=== PATIENT | female | born 1970 | race Caucasian/White ===

== ENCOUNTER 2017-02-18 08:51 | Inpatient (IN) | payer BC ==
[~2017-02-18] VITALS: Ht 162.6 cm; Wt 79.1 kg
[2017-02-18] VITALS (34 sets, daily range): BP systolic 91–129; BP diastolic 52–80; PULSE 58–102; RESP 9–25; Ht 162.6 cm; Wt 79.1 kg
[~2017-02-18 08:51] MED LIST: ROCURONIUM 50 MG INJ ONE; SUCCINYLCHOLINE CHLORIDE 100 MG/5 ML SYG IV ONE
--- NOTE | 2017-02-18 11:53 | HPN ---
Date/Time of Note Date/Time of Note DATE: 02/18/17 TIME: 11:53 Interval H&P Admission Note Pt. seen H&P reviewed: No system changes MARINA FORRESTER PA-C Feb 18, 2017 11:53
[2017-02-18] MEDS ORDERED: BISACODYL 10 MG SUPP PR PRN (12:00)
[2017-02-18] MEDS ORDERED: HYDROmorphONE 1 MG/ML SYG IV PRN (12:00)
[2017-02-18] MEDS ORDERED: NALOXONE (0.4 MG/ML) INJ IV PRN (12:00)
[2017-02-18] MEDS ORDERED: CYCLOBENZAPRINE 10 MG TAB PO PRN (12:00)
[2017-02-18] MEDS ORDERED: CEFAZOLIN 2 GM/50 ML (PMX) 50 ML IVPB ONE (12:00)
[2017-02-18] MEDS ORDERED: HYDROCODONE/APAP (10/325) TAB PO PRN ×3 (12:00→13:00)
[2017-02-18] MEDS ORDERED: ACETAMINOPHEN 325 MG TAB PO PRN (12:00)
[2017-02-18] MEDS ORDERED: LACTATED RINGER'S 1,000 ML IV* ONE (12:00)
[2017-02-18] MEDS ORDERED: AL HYDROX/MG HYDROX/SIMETH 30 ML CUP PO PRN (12:00)
[2017-02-18] MEDS ORDERED: ZOLPIDEM 5 MG TAB PO PRN (12:00)
[2017-02-18] MEDS ORDERED: CEPASTAT LOZENGE MT PRN (12:00)
[2017-02-18] MEDS ORDERED: THROMBIN 5000 UNIT VIAL ONE (12:13)
[2017-02-18] MEDS ORDERED: SURGIFOAM POWDER 1 GM KIT ONE (12:13)
[2017-02-18] MEDS ORDERED: POLYMYXIN/BACITRACIN 1L IRRIG ONE (12:14)
[2017-02-18] MEDS ORDERED: BUPIVACAINE 0.25%/EPI (SDV) 30 ML INJ ONE (12:14)
[2017-02-18] MEDS ORDERED: PROPOFOL 20 ML ONE (12:33)
[2017-02-18] MEDS ORDERED: MIDAZOLAM 1 MG/ML 2 ML INJ ONE (12:33)
[2017-02-18] MEDS ORDERED: METOCLOPRAMIDE 10 MG INJ ONE (12:33)
[2017-02-18] MEDS ORDERED: HYDROmorphONE 2 MG/ML SYG ONE (12:44)
[2017-02-18] MEDS ORDERED: CEFAZOLIN 1 GM INJ ONE (12:58)
[2017-02-18] MEDS ORDERED: PROPOFOL 100 ML ONE (13:01)
[2017-02-18] MEDS ORDERED: HEPARIN 1000 UNITS/ML 10 ML INJ ONE (14:22)
[2017-02-18] MEDS ORDERED: DIPHENHYDRAMINE 50 MG INJ IV PRN (14:30)
[2017-02-18] MEDS ORDERED: ONDANSETRON 4 MG INJ IV PRN (14:30)
[2017-02-18] MEDS ORDERED: HYDROmorphONE (0.2 MG/ML) 10ML SYG IV PRN ×2 (14:30)
[2017-02-18] MEDS ORDERED: METOCLOPRAMIDE 10 MG INJ IV PRN (14:30)
[2017-02-18] MEDS ORDERED: MEPERIDINE 25 MG INJ IV PRN (14:30)
[2017-02-18] MEDS ORDERED: ONDANSETRON 4 MG INJ ONE (14:33)
[2017-02-18] MEDS ORDERED: GLYCOPYRROLATE 1 MG INJ ONE (14:33)
[2017-02-18] MEDS ORDERED: NEOSTIGMINE 3 MG/3 ML SYRINGE ONE (14:33)
[2017-02-18] MEDS ORDERED: EPHEDrine SULFATE 50 MG/5 ML SYG ONE (15:13)
--- NOTE | 2017-02-18 16:14 | RADRPT ---
PROCEDURE: Intraoperative imaging of the lumbar spine with fluoroscopy. CLINICAL INDICATION: Back pain. Intraoperative. TECHNIQUE: 13 images of the lumbar spine were obtained in the operating room with an image intensi fier. No radiologist was in attendance. 163.0 seconds of fluoroscopy time was used. COMPARISON: No prior study is available for comparison. FINDINGS: For the purposes of this report, the last apparent true disc level is considered to be L5-S1. Based on this, images demonstrate fusion at L4-5 with pedicle screws, connecting rods, and intervertebral cage. IMPRESSION: 1. Intraoperative imaging of the lumbar spine. RPTAT: QQ .Thuan Kirby MD, MD Date Time Electronically viewed and signed by .Thuan Kirby MD, on 02/18/2017 16:14 .R/
[2017-02-18] MEDS: ONDANSETRON 4 MG INJ IV PRN (16:51)
[2017-02-18] MEDS: HYDROmorphONE (0.2 MG/ML) 10ML SYG IV PRN ×2 (16:51→17:04)
[2017-02-18] MEDS: HYDROmorphONE 0.2 MG/ML PCA IV SCH (17:01)
--- NOTE | 2017-02-18 17:23 | OPR ---
DATE OF OPERATION: 02/18/2017 PREOPERATIVE DIAGNOSES: 1. L4-5 degenerative disk disease. 2. Stenosis with instability and radiculopathy. POSTOPERATIVE DIAGNOSES: 1. L4-5 degenerative disk disease. 2. Stenosis with instability and radiculopathy. IMPLANTS: 1. [place] 8 x 10 x 40 mm PEEK cage. 2. Fibergraft. 3. [place] 5.5 x 40 mm pedicle screws x4. PROCEDURES: 1. Anterior lumbar interbody fusion at L4-5. 2. Placement of intervertebral biomechanical device at L4-5. 3. Placement of pedicle screws at L4 and L5 bilaterally. 4. Posterolateral fusion at L4-5. 5. Bone marrow aspiration. 6. Use of allograft. 7. Use of C-arm fluoroscopy with interpretation without radiologist present. 8. Intraoperative neuromonitoring (2.5 hours). PRIMARY SURGEON: Victor M Early MD INSOLE REINFORCER: EB Arzola NEED FOR GARMENT LOOPER: During this spinal surgical procedure, my quality assistant was used to retract and protect the spinal nerves and dural sac. My quality assistant also employed the suction catheters to evacuate blood from the surgical field to improve visualization of the neural structures. The quality assistant was medically necessary to facilitate the completion of the surgery in a safe and expeditious manner. State of [place] regulations, as well as hospital bylaws, preclude the use of non-licensed health care personnel, such as operating room technicians, to perform these functions. FINDINGS: Neuromonitoring at the start of the case revealed bilateral L4 amplitude down 20%, left L5 amplitude down 30%, right L5 amplitude down 50%. At the end of the case, nerve signals returned to normal. The patient had disk disease with collapse at L4-5 with resultant stenosis. ESTIMATED BLOOD LOSS: 60 mL. DRAINS: None. SPECIMENS: Disk. COMPLICATIONS OF PROCEDURES: None. ANESTHESIOLOGIST: Dr. Gregg. TYPE OF ANESTHESIA: General. INDICATIONS FOR PROCEDURE: This is a 46-year-old female with lumbosacral radiculopathy in the setting of disk disease and stenosis at L4-5. She has failed nonoperative measures. Preoperatively, we discussed the risks, benefits and alternatives. She understood and wished to proceed. DESCRIPTION OF PROCEDURE IN DETAIL: The patient was identified in the preoperative holding area, given Ancef antibiotic, taken to the operating room, where she was successfully placed under general anesthesia. Neuromonitoring leads were placed, sequential compressive devices were applied. Tapia catheter was introduced. Neuromonitoring was utilized during the procedure for 2.5 hours to include SSEP, MEP, and EMG. This was performed by [employer]. Start time was 1:45 p.m.; closure time was 4:15 p.m. The patient was initially placed in a right lateral decubitus position. Axillary rolls were placed. The patient was secured to the table and the bed was flexed to allow access to the spine. The lateral flank was prepped, draped in usual sterile fashion. Incision was made over the L4-5 level. Incision was taken down. I then dissected with my fingers into the retroperitoneal space. I was able to palpate the psoas muscle. I then passed a dilator under C-arm guidance onto the L4-5 disk space using neuromonitoring along the way. Once this was in place, I passed a guidewire and took AP and lateral images and placed larger dilators followed by the retractor. I cleared the psoas off the annulus and made sure that there were no neural elements in the field. Once this was done, annulotomy was performed followed by radical diskectomy. Endplates were prepared. I placed various trials and chose the appropriate graft height. I impacted the intervertebral biomechanical device into the L4-5 disk space to complete the anterior lumbar interbody fusion at L4-5. I then irrigated the wound and injected Surgifoam for hemostatic purposes. I then removed the retractors and closed the fascia with #1 Vicryl stitch, subcutaneous tissue with 2-0 Vicryl stitch and a 4-0 Monocryl closure. Dermabond was then applied. Once stage I was completed, the patient was transferred to the operating table in prone position over a Glenn frame. All bony prominences were padded. The back was then reprepped and draped in usual sterile fashion. Under C-arm guidance, I identified the pedicles, then made incisions bilaterally over the L4 and L5 pedicles. On the left, there was a tattoo, and I strategically placed the incisions for later repair. I then passed Jamshidi needles into the L4 and L5 pedicles bilaterally. I performed a bone marrow aspiration from the right L4 pedicle and vertebral body. I then passed guidewires. I then placed the 5.5 x 40 mm screws bilaterally at L4 and L5. Once the screws were in place, I stimulated each of the screws and there was no evidence of cortical breach. I then passed a 55 mm rods with setscrews and tying these per manufacture's specifications and removed the extensor tabs. At this point, I took final AP and lateral images and I was happy with placement of the hardware and alignment of the spine. All nerve signals returned to normal. I irrigated the wound. I prepared the posterolateral gutters and placed allograft in the posterolateral gutter for posterolateral fusion at L4-5. Once this was done, I closed the deep fascia with #1 Vicryl stitch. I then closed subcutaneous tissue with 2-0 Vicryl stitch. Care was taken to reapproximate the wound edges on the left where the tattoo was. Then, Dermabond was placed. The patient was then awakened from anesthesia and taken to recovery room in stable condition. Lap, sponge counts were correct x2. There were no apparent complications during the procedure. The patient will be admitted to the [facility] for routine postoperative care to include pain control, neurovascular checks, antibiotics, and physical therapy. Dictated By: VICTOR M THAPA/JANEEN Conf#: [id number] DID#: [id number] MANDIE
--- NOTE | 2017-02-18 17:56 | RADRPT ---
PROCEDURE: Intraoperative imaging of the lumbar spine with fluoroscopy. CLINICAL INDICATION: Back pain. Intraoperative. TECHNIQUE: 2 images of the lumbar spine were obtained in the operating room with an image intensif ier. No radiologist was in attendance. 46 seconds of fluoroscopy time was used. COMPARISON: No prior study is available for comparison. FINDINGS: Images demonstrate surgical instruments overlying the lower lumbar spine. IMPRESSION: 1. Intraoperative imaging of the lumbar spine. RPTAT: QQ .Thuan Kirby MD, MD Date Time Electronically viewed and signed by .Thuan Kirby MD, MD on 02/18/2017 17:56 .R/
[2017-02-18] MEDS: DIPHENHYDRAMINE 50 MG INJ IV PRN (18:28)
[2017-02-18] MEDS: D5W-0.45 NACL + KCL 20 MEQ 1,000 ML IV SCH ×2 (20:24→20:53)
[2017-02-18] MEDS: CEFAZOLIN 1 GM/50 ML (PMX) 50 ML IVPB SCH (20:26)
[2017-02-19] VITALS: BP 96/55; RESP 18
[2017-02-19] MEDS: HYDROmorphONE 0.2 MG/ML PCA IV SCH ×4 (01:19→20:17)
[2017-02-19 04:22] VITALS: BP 97/54; RESP 16
[2017-02-19] MEDS: CEFAZOLIN 1 GM/50 ML (PMX) 50 ML IVPB SCH (04:32)
[2017-02-19 05:16] LABS: ADD SCAN DIFF NO
[2017-02-19 05:32] LABS: BASOPHILS % 0.1 % (0.0-2.0); EOSINOPHILS % 0.2 % (0.0-7.0); HEMATOCRIT 35.3 % (37.0-47.0); HEMOGLOBIN 11.3 g/dl (12.0-16.0); LYMPHOCYTES # 0.9 10^3/ul (0.8-2.9); LYMPHOCYTES % 8.5 % (15.0-51.0); MEAN CORPUSCULAR HEMOGLOBIN 29.2 pg (29.0-33.0); MEAN CORPUSCULAR VOLUME 91.2 fl (82.0-101.0); MEAN PLATELET VOLUME 10.7 fl (7.4-10.4); MONOCYTE # 0.7 10^3/ul (0.3-0.9); MONOCYTES % 6.9 % (0.0-11.0); NEUTROPHIL # 8.9 10^3/ul (1.6-7.5); NEUTROPHILS % 83.9 % (39.0-77.0); PLATELET COUNT 251 10^3/UL (140-415); RED BLOOD COUNT 3.87 10^6/ul (4.20-5.40); WHITE BLOOD COUNT 10.6 10^3/ul (4.8-10.8)
[2017-02-19 05:37] LABS: CREATININE 0.67 mg/dl (0.44-1.00)
[2017-02-19] MEDS: ONDANSETRON 4 MG INJ IV PRN (05:37)
[2017-02-19 05:38] LABS: CALCIUM 8.2 mg/dl (8.4-10.2)
[2017-02-19 05:39] LABS: MAGNESIUM 1.8 mg/dl (1.7-2.5)
--- NOTE | 2017-02-19 06:54 | PREOPHP ---
DATE OF ADMISSION: 02/18/2017 Surgery date 02/18/2017. Dr. Martinez' patient. Dear Dr. Early: Thank you for asking me to see this 46-year-old woman who is entering the hosp ital for an anterior and posterior fusion and decompression of L4-L5 disk space. She was working in [employer] and writing. The patient has ongoing persistent low back pain. She has a lot of difficu lty with bending and reaching. She cannot bend to tie her shoes for example. There is no radiation of pain and no associated numbness or tingling. FAMILY HISTORY: Father is . Mother is living, fairly healthy, although, had throat cancer 3 years ago. One brother is . Two half siblings are well. She is and single, lynda es by herself, no children. PAST SURGICAL HISTORY: Includes fibroid removal. INJURIES: No injuries. ALLERGIES: NONE. MEDICATION: None. The patient is active, has been working out for upper body strength. SOCIAL HISTORY: No use of cigarettes or alcohol. REVIEW OF SYSTEMS: Generally unremarkable except for the following: She does require glasses. Per iods have been regular. Specifically, there is no shortness of breath. She can climb a flight of s tairs. There is no exertional chest pain. PHYSICAL EXAMINATION: GENERAL: Reveals a pleasant, alert woman in no acute distress. VITAL SIGNS: Blood pressure 110/80, pulse 72. She is afebrile, 5 feet 4 inches tall, weighs 177 po unds. HEENT: Pupils round, reactive. Extraocular muscle movements are intact. Ears and throat normal. NECK: Supple. Thyroid is not enlarged. No carotid bruits are heard. LUNGS: Clear to percussion and auscultation. HEART: Heart tones are regular. ABDOMEN: Soft. EXTREMITIES: No clubbing, cyanosis, edema. Straight leg raising positive on the left. Fair lower extremity strength. SKIN: Clear. She has good peripheral pulses. INITIAL IMPRESSION: 1. Preoperative status. 2. Lumbar disk disease. 3. Mildly overweight. DISCUSSION: Laboratory tests have been ordered. Electrocardiogram, chest x-ray are normal. Concepcion yuen has no significant medical history and appears to be in good medical condition for planned surgery . We will be available to follow her postoperatively as needed. Thank you for asking us to see her at this time. Laboratory tests have been drawn and will be available in the next 72 hours. Dictated By: MERCED MONTANEZ MD, SR/JANEEN Conf#: [id number] DID#: [id number]
[2017-02-19 08:08] VITALS: BP 86/50; RESP 19
[2017-02-19] MEDS: DOCUSATE SODIUM 100 MG CAP PO SCH ×2 (08:10→22:01)
[2017-02-19] MEDS: D5W-0.45 NACL + KCL 20 MEQ 1,000 ML IV SCH ×2 (08:10→18:39)
--- NOTE | 2017-02-19 09:55 | PN ---
Date/Time of Note Date/Time of Note DATE: 02/19/17 TIME: 09:54 Assessment/Plan Lines/Catheters IV Catheter Type (from Nrsg): Peripheral IV Tapia in Place (from Nrsg): Yes Assessment/Plan Assessment/Plan Status post lumbar fusion The patient is doing well. Will continue with pain control and physical therapy Subjective 24 Hr Interval Summary Complains of back pain Exam/Review of Systems Vital Signs Vitals Vital Signs Date Time Temp Pulse Resp B/P Pulse Ox O2 Delivery O2 Flow Rate FiO2 02/19/17 08:08 98.0 66 19 86/50 98 02/18/17 22:54 Room Air 02/18/17 22:00 1.0 Intake and Output 02/18/17 02/18/17 02/19/17 15:00 23:00 07:00 Intake Total 1700 ml 300 ml 850 ml Output Total 610 ml Balance 1700 ml -310 ml 850 ml Exam Free Text/Dictation Neurovascularly intact Results Result Diagram: 02/19/17 0455 02/19/17 0455 PROSPER PATHAK MD Feb 19, 2017 09:55
--- NOTE | 2017-02-19 20:19 | CONS ---
Date/Time of Note Date/Time of Note DATE: 02/19/17 TIME: 20:15 Assessment/Plan Assessment/Plan Problems: (1) Status post lumbar laminectomy Status: Acute Comment: Patient is stable postop although she is developing a bit of a dermatologic reaction. While she has no prior known allergies it is possible she is having a reaction either to the cephalosporin that she was given or to the pain medication. I suspect the cephalosporin is much more likely. We will go ahead and treat her with a single dose of Solu-Cortef to knock the reaction down and continue with her physical therapy. Overall she is doing well Consultation Date/Type/Reason Admit Date/Time Feb 18, 2017 at 08:51 Initial Consult Date 02/18/2017 Type of Consultation: Internal medicine Reason for Consultation Postoperative assistance in medical management 24 HR Interval Summary Constitutional: other (Patient complains the onset of diffuse pruritus.) Detailed Summary ENT: no complaints Respiratory: no complaints Cardiovascular: no complaints Gastrointestinal: no complaints Genitourinary: no complaints Skin: pruritis Exam/Review of Systems Vital Signs Vitals Vital Signs Date Time Temp Pulse Resp B/P Pulse Ox O2 Delivery O2 Flow Rate FiO2 02/19/17 17:18 18 02/19/17 08:08 98.0 66 86/50 98 02/18/17 22:54 Room Air 02/18/17 22:00 1.0 Intake and Output 02/18/17 02/18/17 02/19/17 15:00 23:00 07:00 Intake Total 1700 ml 300 ml 850 ml Output Total 610 ml Balance 1700 ml -310 ml 850 ml Exam Constitutional: alert, oriented Neck: non-tender, supple Respiratory: clear to auscultation, normal air movement Cardiovascular: nl pulses, regular rate and rhythm Skin: other (Early papular red rash) Results Result Diagram: 02/19/17 0455 02/19/17 0455 Results 24 hrs Laboratory Tests Test 02/19/17 04:55 White Blood Count 10.6 Red Blood Count 3.87 L Hemoglobin 11.3 L Hematocrit 35.3 L Mean Corpuscular Volume 91.2 Mean Corpuscular Hemoglobin 29.2 Mean Corpuscular Hemoglobin Concent 32.0 Red Cell Distribution Width 14.0 Platelet Count 251 Mean Platelet Volume 10.7 H Neutrophils % 83.9 H Lymphocytes % 8.5 L Monocytes % 6.9 Eosinophils % 0.2 Basophils % 0.1 Nucleated Red Blood Cells % 0.0 Neutrophils # 8.9 H Lymphocytes # 0.9 Monocytes # 0.7 Eosinophils # 0.0 Basophils # 0.0 Nucleated Red Blood Cells # 0.0 Sodium Level 136 Potassium Level 4.0 Chloride Level 99 Carbon Dioxide Level 28 Anion Gap 13 Blood Urea Nitrogen 12 Creatinine 0.67 Glucose Level 102 Calcium Level 8.2 L Magnesium Level 1.8 Medications Medications Current Medications Potassium Chloride/Dextrose/ Sod Cl (D5-1/2ns + KCl 20 Meq) 1,000 ml @ 100 mls/ hr Q10H IV Last administered on 02/19/17 18:39; Admin Dose 100 MLS/HR; Start 02/18/17 at 11:53 Acetaminophen/ Hydrocodone Bitart ([place] (10325)) 1 tab Q4H PRN PO PAIN LEVEL 1-5; Start 02/18/17 at 12:00 Hydromorphone HCl (Dilaudid) 0.2 mg Q1H PRN IV BREAKTHROUGH PAIN; Start at 12:00 Ondansetron HCl (Zofran Inj) 4 mg Q6H PRN IV NAUSEA AND/OR VOMITING Last administered on 02/19/17 05:37; Admin Dose 4 MG; Start 02/18/17 at 12:00 Bisacodyl (Dulcolax Supp) [address] CONSTIPATION; Start 02/18/17 at 12 :00 Docusate Sodium (Colace) 100 mg BID PO Last administered on 02/19/17 08:10; Admin Dose 100 MG; Start 02/19/17 at 09:00 Al Hydrox/Mg Hydrox/Simethicone (Mag-Al Plus) 15 ml Q6H PRN PO CONSTIPATION/ DYSPEPSIA; Start 02/18/17 at 12:00 Acetaminophen (Tylenol Tab) 650 mg Q4H PRN PO ANGULO OR TEMP GREATER THAN 101.3F; Start 02/18/17 at 12:00 Cyclobenzaprine HCl (Flexeril) 10 mg TID PRN PO MUSCLE SPASMS Last administered on 02/19/17 10:02; Admin Dose 10 MG; Start 02/18/17 at 12:00 Phenol (Cepastat Lozenge) 1 lozenge PRN PRN MT SORE THROAT; Start 02/18/17 at 12:00 Diphenhydramine HCl (Benadryl) 25 mg Q6H PRN IV ITCHING Last administered on 18:28; Admin Dose 25 MG; Start 02/18/17 at 12:00 Naloxone HCl (Narcan) 0.2 mg Q2M PRN IV RR 8 BREATHS/MIN OR LESS; Start at 12:00 Miscellaneous Information 1. Hold SOLAR SALES MANAGER at 1,000... SOLAR SALES MANAGER IV ; Start 02/18/17 at 12: 00; Stop 02/20/17 at 10:00 Acetaminophen/ Hydrocodone Bitart ([place] (10/325)) 2 tab 0930 PO ; Start at 09:30; Stop 02/20/17 at 09:31 Acetaminophen/ Hydrocodone Bitart ([place] (10/325)) 2 tab Q4H PRN PO PAIN LEVEL 6-10; Start 02/18/17 at 13:00 Hydromorphone HCl (Dilaudid SOLAR SALES MANAGER) SOLAR SALES MANAGER to be started in PACU Q4PCA IV Last administered on 02/19/17 14:35; Admin Dose 6 MG; Start 02/19/17 at 10:00 DREW BRAVO MD Feb 19, 2017 20:19
[2017-02-19] MEDS ORDERED: HYDROCORTISONE 100 MG INJ IV ONE (20:30)
[2017-02-19 21:15] VITALS: BP 107/55; RESP 20
[2017-02-19 23:25] VITALS: BP 123/67; PULSE 84; RESP 16
[2017-02-20] MEDS: HYDROmorphONE 0.2 MG/ML PCA IV SCH (01:40)
[2017-02-20] MEDS: D5W-0.45 NACL + KCL 20 MEQ 1,000 ML IV SCH (04:13)
[2017-02-20] MEDS: DIPHENHYDRAMINE 50 MG INJ IV PRN (04:53)
[2017-02-20 05:12] LABS: ADD SCAN DIFF NO
[2017-02-20 05:20] LABS: BASOPHILS % 0.1 % (0.0-2.0); EOSINOPHILS % 0.2 % (0.0-7.0); HEMATOCRIT 36.8 % (37.0-47.0); HEMOGLOBIN 11.4 g/dl (12.0-16.0); LYMPHOCYTES # 0.9 10^3/ul (0.8-2.9); LYMPHOCYTES % 8.4 % (15.0-51.0); MEAN CORPUSCULAR HEMOGLOBIN 28.8 pg (29.0-33.0); MEAN CORPUSCULAR VOLUME 92.9 fl (82.0-101.0); MEAN PLATELET VOLUME 10.6 fl (7.4-10.4); MONOCYTE # 0.8 10^3/ul (0.3-0.9); MONOCYTES % 7.3 % (0.0-11.0); NEUTROPHIL # 8.8 10^3/ul (1.6-7.5); NEUTROPHILS % 83.4 % (39.0-77.0); PLATELET COUNT 236 10^3/UL (140-415); RED BLOOD COUNT 3.96 10^6/ul (4.20-5.40); RED CELL DISTRIBUTION WIDTH 14.2 % (11.5-14.5); WHITE BLOOD COUNT 10.6 10^3/ul (4.8-10.8)
[2017-02-20 05:30] LABS: POTASSIUM 4.2 mmol/L (3.5-5.1)
[2017-02-20 05:33] LABS: CALCIUM 8.5 mg/dl (8.4-10.2); CREATININE 0.63 mg/dl (0.44-1.00)
[2017-02-20 05:34] LABS: MAGNESIUM 1.9 mg/dl (1.7-2.5)
--- NOTE | 2017-02-20 07:56 | PN ---
Date/Time of Note Date/Time of Note DATE: 02/20/17 TIME: 07:55 Assessment/Plan Lines/Catheters IV Catheter Type (from Nrsg): Peripheral IV [place] in Place (from Nrsg): Yes Assessment/Plan Assessment/Plan d/c home health attendant and d/c aldridge cont PT and pain control Subjective 24 Hr Interval Summary c/o pain Exam/Review of Systems Vital Signs Vitals Vital Signs Date Time Temp Pulse Resp B/P Pulse Ox O2 Delivery O2 Flow Rate FiO2 02/20/17 01:45 16 02/19/17 23:25 100.0 84 123/67 97 Nasal Cannula 2.0 Intake and Output 02/19/17 02/19/17 02/20/17 15:00 23:00 07:00 Intake Total 200 ml 1930 ml 2700 ml Output Total 1900 ml 1200 ml Balance 200 ml 30 ml 1500 ml Exam Free Text/Dictation NVI Results Result Diagram: 02/20/17 0438 02/20/17 0438 PROSPER PATHAK MD Feb 20, 2017 07:55
[2017-02-20 08:02] VITALS: BP 111/58; RESP 18
[2017-02-20] MEDS: DOCUSATE SODIUM 100 MG CAP PO SCH (08:34)
[2017-02-20] MEDS ORDERED: HYDROCODONE/APAP (10/325) TAB PO SCH (09:30)
== END 2017-02-20 12:45 | disposition home or self-care (01) | DRG 455 ==
LOC: REC 08:51 → MS1 19:33
PROVIDERS: ADMIT Specialist; ATTEND Specialist
PROC: 0SG00K1 Fusion of Lumbar Vertebral Joint with Nonautologous Tissue Substitute, Posterior Approach, Posterior Column, Open Approach (ICD-10-PCS; 2017-02-18)
PROC: 0SG00A0 Fusion of Lumbar Vertebral Joint with Interbody Fusion Device, Anterior Approach, Anterior Column, Open Approach (ICD-10-PCS; principal; 2017-02-18 12:30)
DX: M51.16 Intervertebral disc disorders with radiculopathy, lumbar region (principal); E66.3 Overweight; M48.06 Spinal stenosis, lumbar region; Z68.29 Body mass index [BMI] 29.0-29.9, adult; L29.9 Pruritus, unspecified; T36.1X5A Adverse effect of cephalosporins and other beta-lactam antibiotics, initial encounter; Y92.230 Patient room in hospital as the place of occurrence of the external cause
CPT/HCPCS: 72020; 72100; 80048; 83735; 85025; 86999; 97116; 97162; 97530; C1713; J0330; J0690; J1170; J1200; J1644; J1720; J2250; J2405; J2710; J2765; J3480